=== PATIENT | female | born 1975 | race American Indian/Alaskan Native ===

== ENCOUNTER 2020-06-01 14:13 | Emergency (ER) | payer BC ==
[2020-06-01] MEDS ORDERED: ASPIRIN 325 MG TAB PO ONE (14:20)
[2020-06-01] MEDS ORDERED: LACTATED RINGERS 1,000 ML IV ONE (14:47)
[2020-06-01] MEDS ORDERED: FAMOTIDINE 20 MG/2 ML INJ IV ONE (14:47)
[2020-06-01] MEDS ORDERED: METOCLOPRAMIDE 10 MG/2 ML INJ IV ONE (14:47)
[2020-06-01] MEDS ORDERED: diphenhydrAMINE 50 MG/ML VIAL IV ONE (14:47)
[2020-06-01] MEDS ORDERED: ACETAMINOPHEN 325 MG TAB PO ONE (14:47)
--- NOTE | 2020-06-01 14:55 | Emergency Department Report ---
ED General Adult HPI - General Chief complaint: Chest Pain Stated complaint: CP/DIZZINESS PUI?: No Time Seen by Provider: 06/01/20 14:31 Source: patient, RN notes reviewed Mode of arrival: Ambulatory Limitations: No Limitations - History of Present Illness Initial comments: The patient was evaluated in the emergency department for symptoms described in the history of present illness. He/she was evaluated in the context of the global COVID-19 pandemic, which necessitated consideration that the patient might be at risk for infection with the virus that causes COVID-19. Institutional protocols and algorithms that pertain to the evaluation of patients at risk for COVID-19 are in a state of rapid change based on information released by regulatory bodies including the CDC and federal and state organizations. These policies and algorithms were followed during the patient's care in the emergency department. Please note that these policies, procedures and recommendations changed on a rapid basis. Primary CARE doctor: Dr. Tk Hernandez During the history and physical examination, I am chaperoned by nurse Emelia Hardin Patient is a 44-year-old female. She is not known to myself previously. She was diagnosed with Covid in January 2020, and reports that she essentially recovered. She may have a history of elevated blood pressure, appears to have a history of obesity. She states that she is not , and has not delivered or given in the past 6 weeks. She currently does not take any long-term prescription medications. The patient presents to the ER with multiple complaints. Her first complaint is headache. The headache is present for 1 week. The headache is frontal and bitemporal. The headache is intermittent. The headache is not sudden or thunderclap in nature. It has not reached maximal intensity within an hour of onset. It is not described as the worst headache of her life. There is no loss of vision. There is no loss of taste or smell. There is no focal extremity weakness/numbness, sore throat, neck pain, recent motor vehicle accident, chiropractic manipulation, no personal family history of aneurysm, and it was worse a few days ago. Patient reports poor sleep hygiene, reports that she typically only gets 5 hours of poor quality uninterrupted sleep each evening. She is also told that she snores at night, but does not have a formal diagnosis of sleep apnea. She took Tylenol yesterday, with some improvement in her symptoms. Her next complaint is central chest tightness. The chest tightness is intermittent for 1 week. The tightness lasts for a few seconds. This morning, she had chest tightness f for a few seconds, sometime between 5 AM, and 7 AM. The tightness does not radiate to the back, arms or neck. There is no vomiting, diaphoresis or exertional shortness of breath. She recently traveled here from [place]. There is no leg pain or leg swelling. She believes that her sister, but that her family otherwise, had a recent myocardial infarction, at the age of 38. She is not quite sure what the cause was. The patient does not take aspirin. The patient's final complaint is dizziness. She describes the sensation as "I am worried that I am going to fall, but I have not fallen." The patient specifically denies near syncope, ataxia, loss of vision, and this sensation of feeling dizzy has now resolved. -: Gradual, days(s) Location: head, chest Consistency: intermittent Improves with: rest Worsens with: none - Related Data Previous Rx's Medication Instructions Recorded Last Taken Type Acetaminophen [Non-Aspirin Extra 500 mg PO Q6HR PRN #30 tablet 06/01/20 Unknown Rx Strength] Aspirin [Aspirin BABY CHEW TAB] 81 mg PO QDAY #30 tab.chew 06/01/20 Unknown Rx Ibuprofen [Motrin] 600 mg PO Q8H PRN #30 tablet 06/01/20 Unknown Rx Metoclopramide [Reglan] 10 mg PO QID PRN #30 tablet 06/01/20 Unknown Rx Allergies Allergy/AdvReac Type Severity Reaction Status Date / Time No Known Allergies Allergy Unverified 06/01/20 14:15 ED Review of Systems ROS: Stated complaint: CP/DIZZINESS Other details as noted in HPI Constitutional: denies: fever, malaise, weakness Eyes: denies: eye discharge, vision change ENT: denies: epistaxis Cardiovascular: chest pain, palpitations Gastrointestinal: denies: abdominal pain, nausea, vomiting, constipation, hematemesis, melena Genitourinary: denies: dysuria Musculoskeletal: denies: back pain Skin: denies: lesions Neurological: headache, weakness. denies: numbness, paresthesias, confusion, abnormal gait, vertigo Psychiatric: anxiety Hematological/Lymphatic: denies: easy bleeding ED Past Medical Hx - Past Medical History Previous Medical History?: Yes Hx Hypertension: Yes (no meds) - Surgical History Past Surgical History?: Yes Additional Surgical History: x 3 - Social History Smoking Status: Never Smoker Substance Use Type: Alcohol - Medications Home Medications: Home Medications Medication Instructions Recorded Confirmed Last Taken Type Acetaminophen [Non-Aspirin Extra 500 mg PO Q6HR PRN #30 tablet 06/01/20 Unknown Rx Strength] Aspirin [Aspirin BABY CHEW TAB] 81 mg PO QDAY #30 tab.chew 06/01/20 Unknown Rx Ibuprofen [Motrin] 600 mg PO Q8H PRN #30 tablet 06/01/20 Unknown Rx Metoclopramide [Reglan] 10 mg PO QID PRN #30 tablet 06/01/20 Unknown Rx ED Physical Exam - General Limitations: No Limitations General appearance: alert, anxious, obese - Head Head exam: Present: atraumatic, normocephalic - Eye Eye exam: Present: normal appearance, PERRL, EOMI, other (Visual acuity intact to finger counting, color perception, reading at a close distance). Absent: nystagmus - ENT ENT exam: Present: normal exam, normal orophraynx, mucous membranes moist, normal external ear exam - Neck Neck exam: Present: normal inspection, full ROM. Absent: tenderness, meningismus - Respiratory Respiratory exam: Present: normal lung sounds bilaterally. Absent: respiratory distress, wheezes, rales, rhonchi, stridor, decreased breath sounds - Cardiovascular Cardiovascular Exam: Present: normal rhythm, tachycardia, normal heart sounds. Absent: systolic murmur, diastolic murmur, rubs, gallop - GI/Abdominal GI/Abdominal exam: Present: soft. Absent: distended, tenderness, guarding, rebound, rigid, pulsatile mass - Extremities Exam Extremities exam: Present: normal inspection, full ROM, other (2+ pulses noted in the bilateral upper and lower extremities. There is no palpable cord. negative Homans sign. Muscular compartments are soft. The pelvis is stable.). Absent: pedal edema, calf tenderness - Back Exam Back exam: Present: normal inspection, full ROM. Absent: tenderness, CVA tenderness (R), CVA tenderness (L), paraspinal tenderness, vertebral tenderness - Neurological Exam Neurological exam: Present: alert, oriented X3, normal gait, other (There is no facial droop. The tongue is midline. Extraocular movements are intact bilaterally. There is 5 out of 5 strength in bilateral upper and lower extremities. Sensation is intact to light touch bilateral upper and lower extremities. There is no past-pointing. There is no pronator drift.). Absent: motor sensory deficit - Psychiatric Psychiatric exam: Present: anxious - Skin Skin exam: Present: warm, dry, intact, normal color. Absent: rash ED Course Vital Signs 06/01/20 06/01/20 06/01/20 14:18 15:00 15:14 Temperature 98.0 F Pulse Rate 113 H 91 H 102 H Respiratory 18 18 Rate Blood Pressure 135/96 140/85 Blood Pressure 138/86 [Left] O2 Sat by Pulse 100 100 99 Oximetry 06/01/20 06/01/20 16:01 16:45 Temperature Pulse Rate 84 80 Respiratory 21 14 Rate Blood Pressure 123/68 123/68 Blood Pressure [Left] O2 Sat by Pulse 99 99 Oximetry - Reevaluation(s) Reevaluation #1: 06/01/20 14:57 Differential diagnosis, including but not limited to: Sleep deprivation, migraine headache, tension headache, cluster headache, obstructive sleep apnea, orthostasis, vagal event, pulmonary embolism, dehydration, coronary artery disease Assessment and plan: 44-year-old female with 3 complaints, headache, dizziness, and chest pain. Complaints #1, headache. GCS 15, NIH score of 0, nonfocal motor examination. No recent trauma, chiropractic manipulation, headache is not described as sudden or thunderclap in nature, not described as maximal in intensity, patient is fairly obese, with poor sleep hygiene, I suspect sleep deprivation plus minus undiagnosed obstructive sleep apnea. Do not see indication for emergent neuroimaging at this time. Counseled patient on need for proper sleep hygiene, she will also need to follow-up with her outpatient primary care doctor, or sleep specialist, for formal sleep evaluation. Have also recommended avoidance of electronic materials, devices, proper sleep hygiene and 8 hours of good quality uninterrupted sleep each evening, patient may also start keeping a headache diary. We will treat her headache with appropriate nonnarcotic analgesia. Complaints #2, chest pain and dizziness. Chest pain intermittent for 1 week. Patient is tachycardic, intermittently, but otherwise not tachypneic or hypoxic, low pretest probability for pulmonary embolism, however, given tachycardia, EKG morphology, recent trip to [place], we will send D-dimer to risk stratify for pulmonary embolism. Assuming troponin negative x1, symptoms present for 1 week, as per the [employer] clinical policy, myocardial infarction may be ruled out with 1 set of troponins/cardiac enzymes, we will obtain appropriate laboratory studies, and EKG x2. Assuming no evidence of serum markers to suggest myocardial infarction, we would consider the patient to be low risk for major adverse cardiac event as per heart score, and her paperwork will be referred to [facility] cardiology to complete a cardiac risk ratification. We will reassess after initial data points 06/01/20 15:55 Troponin negative x1. D-dimer negative. Tachycardia resolved. Heart rate 88 bpm. Patient reassessed. She states that she feels much improved. She is noted to be resting comfortably on the stretcher, in no acute distress, also using her cellular phone. Patient updated on plan of care. She is amenable to this plan of care. 06/01/20 17:55 Final reevaluation. Troponin negative x2. EKG unchanged x2. Tachycardia resolved. Patient playing on her cell phone. She feels much improved. She endorses readiness for discharge. She is suitable to follow-up with an outpatient primary care doctor and/or claims manager. ED Medical Decision Making - Lab Data Result diagrams: 06/01/20 14:28 06/01/20 14:28 Vital Signs 06/01/20 14:18 Temperature 98.0 F Pulse Rate 113 H Respiratory 18 Rate Blood Pressure 135/96 O2 Sat by Pulse 100 Oximetry Vital Signs 06/01/20 06/01/20 14:18 15:14 Temperature 98.0 F Pulse Rate 113 H 102 H Respiratory 18 Rate Blood Pressure 135/96 Blood Pressure 138/86 [Left] O2 Sat by Pulse 100 99 Oximetry Lab Results 06/01/20 06/01/20 06/01/20 Range/Units 14:28 14:28 14:28 WBC 8.4 (4.5-11.0) K/mm3 RBC 5.05 H (3.65-5.03) M/mm3 Hgb 13.4 (10.1-14.3) gm/dl Hct 41.2 (30.3-42.9) % MCV 82 (79-97) fl MCH 27 L (28-32) pg MCHC 33 (30-34) % RDW 14.1 (13.2-15.2) % Plt Count 285 (140-440) K/mm3 Lymph % (Auto) 34.0 (13.4-35.0) % [place] % (Auto) 5.7 (0.0-7.3) % Eos % (Auto) 3.8 (0.0-4.3) % Baso % (Auto) 1.0 (0.0-1.8) % Lymph # (Auto) 2.9 (1.2-5.4) K/mm3 [place] # (Auto) 0.5 (0.0-0.8) K/mm3 Eos # (Auto) 0.3 (0.0-0.4) K/mm3 Baso # (Auto) 0.1 (0.0-0.1) K/mm3 Seg Neutrophils % 55.5 (40.0-70.0) % Seg Neutrophils # 4.7 (1.8-7.7) K/mm3 PT 12.2 (12.2-14.9) Sec. INR 0.91 (0.87-1.13) D-Dimer 139.93 (0-234) ng/mlDDU Sodium 140 (137-145) mmol/L Potassium 4.1 (3.6-5.0) mmol/L Chloride 103.1 (98-107) mmol/L Carbon Dioxide 28 (22-30) mmol/L Anion Gap 13 mmol/L BUN 8 (7-17) mg/dL Creatinine 0.8 (0.6-1.2) mg/dL Estimated GFR > 60 ml/min BUN/Creatinine Ratio 10 % Glucose 109 H (65-100) mg/dL Calcium 8.8 (8.4-10.2) mg/dL Total Bilirubin 0.20 (0.1-1.2) mg/dL AST 19 (5-40) units/L ALT 21 (7-56) units/L Alkaline Phosphatase 108 (35-129) units/L Total Protein 7.2 (6.3-8.2) g/dL Albumin 4.1 (3.9-5) g/dL Albumin/Globulin Ratio 1.3 % - EKG Data -: EKG Interpreted by Il EKG shows normal: sinus rhythm Rate: normal - EKG Data When compared to previous EKG there are: previous EKG unavailable 06/01/20 14:56 There is no prior EKG available for interpretation/comparison. EKG today shows sinus rhythm, 93 bpm, left axis deviation, left anterior fascicular block, incomplete right bundle branch block, QTC is prolonged, ab normal EKG, not a STEMI. Time of interpretation, 14: 25 06/01/20 17:54 EKG #2, interpreted at 17: 20 Sinus rhythm, 84 bpm, left axis deviation, left anterior fascicular block, incomplete right bundle branch block, QTC is prolonged. Abnormal EKG, unchanged from prior, not a STEMI peer - Radiology Data Radiology results: pending Critical care attestation.: If time is entered above; I have spent that time in minutes in the direct care of this critically ill patient, excluding procedure time. ED Disposition Clinical Impression: History of chest pain, History of dizziness, Sleep disturbance, unspecified Headache Qualifiers: Headache type: unspecified Headache chronicity pattern: episodic headache Intractability: not intractable Qualified Code(s): R51.9 - Headache, unspecified Disposition: DC-01 TO HOME OR SELFCARE Is pt being admited?: No Does the pt Need Aspirin: No Condition: Good Instructions: General Headache Without Cause, Nonspecific Chest Pain, Adult, [id number] Additional Instructions: Please follow-up with an outpatient claims manager within the next 3 days. Patient's information has been transmitted/sent to [facility] cardiology, where she should receive a call back for follow-up soon. However, we do recommend that the patient contact this cardiology group first thing t omorrow, to arrange close outpatient follow-up. Please take the medications as needed for nausea, vomiting, headache, and chest pain. Minimize/avoid consumption of heavy and spicy foods, alcohol, tobacco and smoke products. Recommend that patient get at least 7 to 8 hours of good quality uninterrupted sleep each evening. Recommend that patient minimize exposure and utilization to electronic devices, and specifically avoid using tablet, cell phone, computer, video games and electronic devices before going to sleep. Patient may have a component of undiagnosed obstructive sleep apnea, and should follow-up with her primary care physician or dedicated sleep physician within the next month for evaluation for potential obstructive sleep apnea. [facility] cardiology is a local cardiology practice. Dr. Hernandez is a local primary care doctor. Dr. Foley Is a local sleep physician/pulmonology. Please return to the emergency room right away with new pain, worsened pain, migration of pain, projectile vomiting, change in mental status, confusion, inability to tolerate liquid feeds, new, worsened or different symptoms not present on the initial emergency room evaluation. Prescriptions: Aspirin [Aspirin BABY CHEW TAB] 81 mg PO QDAY #30 tab.chew Ibuprofen [Motrin] 600 mg PO Q8H PRN #30 tablet PRN Reason: Pain Acetaminophen [Non-Aspirin Extra Strength] 500 mg PO Q6HR PRN #30 tablet PRN Reason: Pain , Severe (7-10) Metoclopramide [Reglan] 10 mg PO QID PRN #30 tablet PRN Reason: Headache Referrals: TK HERNANDEZ MD [Staff Physician] - 3-5 Days BEN FOLEY MD [Staff Physician] - 3-5 Days [facility] [Provider Group] - 3-5 Days Heart Score - HEART Score History: Slightly suspicious EKG: Non-specific Age: < 45 Risk factors: 1-2 risk factors Troponin: < normal limit HEART Score: 2 - Critical Actions Critical Actions: 0-3 pts:0.9-1.7%risk of adverse cardiac event.Candidate for discharge
[2020-06-01 15:02] LABS: Basophils # (Auto) 0.1 K/mm3 (0.0-0.1); Eosinophils # (Auto) 0.3 K/mm3 (0.0-0.4); Eosinophils % (Auto) 3.8 % (0.0-4.3); Hematocrit 41.2 % (30.3-42.9); Hemoglobin 13.4 gm/dl (10.1-14.3); Lymphocytes # (Auto) 2.9 K/mm3 (1.2-5.4); Mean Corpuscular HGB Conc 33 % (30-34); Mean Corpuscular Volume 82 fl (79-97); Monocytes # (Auto) 0.5 K/mm3 (0.0-0.8); Monocytes % (Auto) 5.7 % (0.0-7.3); Platelet Count 285 K/mm3 (140-440); Red Blood Count 5.05 M/mm3 (3.65-5.03); Red Cell Distribution Width 14.1 % (13.2-15.2)
[2020-06-01 15:10] LABS: INR 0.91 (0.87-1.13)
[2020-06-01 15:19] LABS: Alanine Aminotransferase 21 units/L (7-56); Albumin 4.1 g/dL (3.9-5); BUN/Creatinine Ratio 10; Blood Urea Nitrogen 8 mg/dL (7-17); Calcium 8.8 mg/dL (8.4-10.2); Hemolysis Index 22
--- NOTE | 2020-06-01 17:04 | XRay Report ---
CHEST 2 VIEWS INDICATION / CLINICAL INFORMATION: chest pain. COMPARISON: 07/03/19 FINDINGS: SUPPORT DEVICES: None. HEART / MEDIASTINUM: No significant abnormality. LUNGS / PLEURA: No significant pulmonary or pleural abnormality. No pneumothorax. ADDITIONAL FINDINGS: No significant additional findings. IMPRESSION: 1. No acute findings. No change. Signer Name: Raheem Ramirez MD Signed: 06/01/2020 5:00 PM Workstation Name: [id number]
[2020-06-01 18:21] VITALS: BP 126/75
--- NOTE | 2020-06-04 08:40 | Electrocardiograph Report ---
[facility] Test Date: 2020-06-01 Test Time: 14:25:04 Pat Name: CONCHITA BELL Department: Room: Gender: F Jde Developer: BRANDON : 1975 Requested By: GERTRUDIS GOODE Order Number: [id number] Reading MD: Balaji Restrepo Measurements Intervals [place] Rate: 93 P: 54 SD: 152 QRS: -16 QRSD: 104 T: 34 QT: 372 QTc: 462 Interpretive Statements Sinus rhythm No previous ECG available for comparison Electronically Signed On 06-04-2020 5:40:22 PDT by Balaji Restrepo
--- NOTE | 2020-06-04 08:40 | Electrocardiograph Report ---
[facility] Test Date: 2020-06-01 Test Time: 17:20:24 Pat Name: CONCHITA BELL Department: Room: Gender: F Manager Study: TV : 1975 Requested By: GERTRUDIS GOODE Order Number: [id number] Reading MD: Balaji Restrepo Measurements Intervals [place] Rate: 84 P: 44 IA: 171 QRS: -28 QRSD: 105 T: 39 QT: 390 QTc: 461 Interpretive Statements Sinus rhythm Low voltage, precordial leads No previous ECG available for comparison Electronically Signed On 06-04-2020 5:40:41 PDT by Balaji Restrepo
== END 2020-06-01 18:22 | disposition home or self-care (01) ==
LOC: ED 14:13
DX: G47.9 Sleep disorder, unspecified (principal); R51.9 Headache, unspecified; I10 Essential (primary) hypertension; Z79.899 Other long term (current) drug therapy; Z98.890 Other specified postprocedural states; Z87.898 Personal history of other specified conditions
CPT/HCPCS: 36415; 71046; 80053; 84484; 84702; 85025; 85379; 85610; 93005; 96361; 96374; 96375; 99284; J1200; J2765; J7120

== ENCOUNTER 2020-06-04 10:20 | Outpatient (CLI) | payer BC ==
[2020-06-04 12:15] LABS: Hepatitis C Virus Antibody Non-Reactive (NonReactive)
== END 2020-06-04 10:21 | disposition home or self-care (01) ==
LOC: LAB 10:20
PROVIDERS: ATTEND Obstetrics & Gynecology
DX: Z11.3 Encounter for screening for infections with a predominantly sexual mode of transmission (principal)
CPT/HCPCS: 36415; 86592; 86689; 86706; 86803; 87529

== ENCOUNTER 2020-07-21 11:00 | Outpatient (CLI) | payer BC | END 2020-07-21 11:01 | disposition home or self-care (01) | LOC: SLR 11:00 | PROVIDERS: ATTEND Specialist | DX: G47.33 Obstructive sleep apnea (adult) (pediatric) (principal); E66.9 Obesity, unspecified | CPT/HCPCS: 95810 ==

== ENCOUNTER 2020-08-18 12:17 | Outpatient (CLI) | payer BC ==
--- NOTE | 2020-08-18 15:01 | XRay Report ---
BILATERAL FEET 6 VIEWS INDICATION / CLINICAL INFORMATION: BILATERAL FOOT PAIN. COMPARISON: None available. FINDINGS: There are small Achilles spurs bilaterally. No other significant skeletal abnormality Signer Name: Fuad Morales MD FACR Signed: 08/18/2020 2:52 PM Workstation Name: [id number]
== END 2020-08-18 12:18 | disposition home or self-care (01) ==
LOC: XRAY 12:17
PROVIDERS: ATTEND Podiatrist Foot & Ankle Surgery
DX: M77.52 Other enthesopathy of left foot and ankle (principal); M77.51 Other enthesopathy of right foot and ankle; D49.2 Neoplasm of unspecified behavior of bone, soft tissue, and skin

== ENCOUNTER → 2020-08-19 | Outpatient (CLI) | payer BC | END | disposition home or self-care (01) | LOC: SLR 11:00 | PROVIDERS: ATTEND Specialist | DX: G47.33 Obstructive sleep apnea (adult) (pediatric) (principal) | CPT/HCPCS: 95811 ==